=== PATIENT | female | born 1990 | race African-American/Black ===

== ENCOUNTER 2017-01-23 09:44 | Emergency (ER) | payer SELFPAY ==
[~2017-01-23] VITALS: Ht 175.3 cm; Wt 89.4 kg
[~2017-01-23 09:44] MED LIST: PNV1TABL25 PO
[2017-01-23 10:38] VITALS: BP 135/86
[2017-01-23] MEDS ORDERED: predniSONE 20 MG TABLET ONE (10:43)
[2017-01-23] MEDS ORDERED: predniSONE 20 MG TABLET PO ONE (10:45)
[2017-01-23] MEDS ORDERED: IPRATRPIUM/ALBUTEROL 0.5/2.5MG 3 ML NEBU. NEB ONE (10:45)
[2017-01-23] MEDS ORDERED: IPRATRPIUM/ALBUTEROL 0.5/2.5MG 3 ML NEBU. ONE (10:49)
--- NOTE | 2017-01-23 10:50 | PHYS DOC ---
Past Medical History Past Medical History: No Pertinent History, Endometriosis Past Surgical History: Other Additional Past Surgical Histo: something done with endometriosis Alcohol Use: Occasionally Drug Use: None Adult General Chief Complaint Chief Complaint: ASTHMA HPI HPI Patient is a 26 year old female presents to the emergency department stating that she has had 2 days history of shortness of air difficulty breathing. She states today she has had increased difficulty in which she is unable to catch her breath. Patient denies any history of. She states that approximately one week ago she had a fever but has not had a fever since that time. She denies any productive cough. She denies taking any medications to help with her breathing. Review of Systems Review of Systems Constitutional: Denies fever or chills [] Eyes: Denies change in visual acuity, redness, or eye pain [] HENT: Denies nasal congestion or sore throat [] Respiratory: Denies cough C/o shortness of breath [] Cardiovascular: No additional information not addressed in HPI [] GI: Denies abdominal pain, nausea, vomiting, bloody stools or diarrhea [] : Denies dysuria or hematuria [] Musculoskeletal: Denies back pain or joint pain [] Integument: Denies rash or skin lesions [] Neurologic: Denies headache, focal weakness or sensory changes [] Endocrine: Denies polyuria or polydipsia [] Current Medications Current Medications Current Medications Medications (Trade) Dose Ordered Sig/Jese Start Time Stop Time Status Last Admin Dose Admin Albuterol/ Ipratropium (Duoneb) 3 ml 1X ONCE 01/23/17 10:45 01/23/17 10:46 DC 01/23/17 10:50 3 ML Prednisone (Prednisone) 40 mg 1X ONCE 01/23/17 10:45 01/23/17 10:46 DC 01/23/17 10:45 40 MG Allergies Allergies Allergies Coded Allergies Type Severity Reaction Last Updated Verified No Known Drug Allergies 10/23/13 No Physical Exam Physical Exam Constitutional: Well developed, well nourished, no acute distress, non-toxic appearance. [] HENT: Normocephalic, atraumatic, bilateral external ears normal, oropharynx moist, no oral exudates, nose normal. [] Eyes: PERRLA, EOMI, conjunctiva normal, no discharge. [] Neck: Normal range of motion, no tenderness, supple, no stridor. [] Cardiovascular:Heart rate regular rhythm, no murmur [] Lungs & Thorax: Bilateral breath sounds with decrease air movement, wheezes noted to the left anterior and posterior lobes Skin: Warm, dry, no erythema, no rash. [] Back: No tenderness Extremities: No tenderness, no cyanosis, no clubbing, ROM intact, no edema. [] Neurologic: Alert and oriented X 3, normal motor function, normal sensory function, no focal deficits noted. [] Psychologic: Affect normal, judgement normal, mood normal. [] Current Patient Data Vital Signs Vital Signs Date Time Temp Pulse Resp B/P (MAP) Pulse Ox O2 Delivery O2 Flow Rate FiO2 01/23/17 10:55 100 Room Air 01/23/17 10:38 98.1 80 22 135/86 (102) 98.1 EKG EKG [] Radiology/Procedures Radiology/Procedures [] Course & Med Decision Making Course & Med Decision Making Pertinent Labs and Imaging studies reviewed. (See chart for details) Patient was provided with treatment here in the emergency department which she states is helped much better and her breathing. Patient was also provided with prednisone here in the emergency department. She'll be discharged home with a pro-air prescription in a prednisone prescription. She was instructed to use the prednisone on a daily basis for the next 7 days and recommended the albuterol inhaler as needed for shortness of air difficulty breathing. Patient was also recommended to stop smoking. Patient will be discharged home in stable condition she was provided with signs and symptoms to return back to the emergency department. All questions were answered for the patient at the bedside. Patient did ask how she was going to get her medications as she does not have insurance. Patient was instructed that she'll have to take her prescriptions to a pharmacy and have them filled and patent out of pocket for her medications. [] Dragon Disclaimer Dragon Disclaimer This electronic medical record was generated, in whole or in part, using a voice recognition dictation system. Departure Departure Impression: Primary Impression: Asthma Disposition: HOME, SELF-CARE Condition: STABLE Referrals: NO PCP (PCP) Patient Instructions: Asthma, Adult, [id number], Smoking Cessation, Tips For Success Additional Instructions: Activity as tolerated. Medications as prescribed. Stop smoking as this is can help with your lung functions. Follow-up with your primary care physician in the next 3-5 days. Return back to emergency department for signs and symptoms of become worse. Scripts Albuterol Sulfate (PROAIR HFA INHALER) 8.5 Gm Hfa.aer.ad 1 PUFF INH PRN Q6HRS Y for SHORTNESS OF BREATH, #1 INHALER 0 Refills Prov: IRA WILLARD APRN 01/23/17 Prednisone (PREDNISONE) 20 Mg Tablet 40 MG PO DAILY, #14 TAB Prov: IRA WILLARD APRN 01/23/17 IRA WILLARD APRN Jan 23, 2017 10:50
[2017-01-23] MEDS ORDERED: PROAIR HFA8.5 GM INH (11:33)
[2017-01-23] MEDS ORDERED: PRED20TA PO (11:33)
== END 2017-01-23 11:35 | disposition home or self-care (01) ==
LOC: ER 09:44
DX: J45.909 Unspecified asthma, uncomplicated (principal)
CPT/HCPCS: 94250; 94640; 99283; J7512; J7620

== ENCOUNTER 2020-02-24 20:29 | Inpatient (IN) | payer SELFPAY ==
[~2020-02-24] VITALS: Ht 175.3 cm; Wt 91.9 kg
[~2020-02-24 20:29] MED LIST changes: +ALBU2.5V8 INH; +PRED20TA PO
[2020-02-24 21:19] LABS: BILIRUBIN,URINE NEGATIVE (NEG); CLARITY,URINE CLOUDY; COLOR,URINE YELLOW; NITRITE,URINE NEGATIVE (NEG); PROTEIN,URINE NEGATIVE (NEG-TRACE)
[2020-02-24 21:21] LABS: BASO # 0.2 x10^3/uL (0.0-0.2); BASO % 1 % (0-3); EOS % 0 % (0-3); HEMATOCRIT 37.2 % (36.0-47.0); HEMOGLOBIN 12.9 g/dL (12.0-15.5); LYMPH # 2.3 x10^3/uL (1.0-4.8); LYMPH % 12 % (24-48); MEAN CORPUSCULAR HEMOGLOBIN 30 pg (25-35); MEAN CORPUSCULAR HGB CONC 35 g/dL (31-37); MEAN CORPUSCULAR VOLUME 87 fL (79-100); MONO # 0.6 x10^3/uL (0.0-1.1); MONO % 3 % (0-9); NEUT # 15.9 x10^3/uL (1.8-7.7); NEUT % 84 % (31-73); PLATELET COUNT 250 x10^3/uL (140-400); RED BLOOD COUNT 4.26 x10^6/uL (3.50-5.40); RED CELL DISTRIBUTION WIDTH 13.4 % (11.5-14.5)
[2020-02-24 21:23] LABS: BACTERIA,URINE MODERATE /HPF (0-FEW); SQUAMOUS EPITHELIAL CELL,UR MOD /LPF
[2020-02-24 21:24] LABS: RBC,URINE 0 /HPF (0-2)
[2020-02-24 21:26] LABS: CALCIUM 9.3 mg/dL (8.5-10.1); GFR 78.8
[2020-02-24] MEDS ORDERED: fentaNYL PF VIAL 100 MCG/2 ML VIAL IV ONE ×2 (21:30→23:00)
[2020-02-24] MEDS ORDERED: IV NORMAL SALINE 1000ML BAG 1,000 ML IV ONE (21:30)
[2020-02-24] MEDS ORDERED: ONDANSETRON PF 4 MG/2 ML VIAL. IV ONE (21:30)
[2020-02-24 21:32] LABS: MAGNESIUM 1.9 mg/dL (1.8-2.4); TOTAL BILIRUBIN 0.5 mg/dL (0.2-1.0)
[2020-02-24] MEDS ORDERED: CONTRAST GIVEN. MC PRN (21:45)
[2020-02-24 21:50] LABS: % BANDS 1 % (0-9); % LYMPHS 11 % (24-48); % MONOS 2 % (0-10); % SEGS 86 % (35-66); PLT ESTIMATE ADEQUATE (ADEQUATE)
[2020-02-24] MEDS ORDERED: IOHEXOL 350 MG/ML 100 ML VIAL. IV ONE (22:00)
--- NOTE | 2020-02-24 22:00 | RAD ---
Exam: CT of abdomen and pelvis with contrast INDICATION: Right lower quadrant abdominal pain TECHNIQUE: Sequential axial images through the abdomen and pelvis obtained following the administration of 75 mL of Omni 350 IV contrast. Sagittal and coronal reformatted images were reconstructed from the axial data and reviewed. Comparisons: None FINDINGS: Heart size is normal. No pericardial effusion. Visualized lung bases are clear. No pleural effusion. Liver, spleen, pancreas, gallbladder and adrenals are unremarkable. No perinephric inflammation or hydronephrosis. No renal or ureteral calculi are identified. Bladder is decompressed not well evaluated. Uterus is not enlarged. No abnormal adnexal mass. Small bowel is mildly dilated in the pelvis, with mucosal hyperenhancement. Large and small bowel are unremarkable. Appendix is normal. No free abdominal air or fluid. No obstruction. Abdominal aorta has a normal course and caliber. Abdominal vasculature is patent. No enlarged abdominal lymph nodes are identified. Bowel aorta has a normal course and caliber. No enlarged intra-abdominal lymph nodes are identified. No suspicious osseous lesions or acute fractures. IMPRESSION: 1. Findings which may relate to enteritis and small bowel seen in the pelvis. May be infectious or inflammatory in etiology. 2. Normal appendix. Exposure: One or more of the following in the visualized dose reduction techniques were utilized for this examination: 1. Automated exposure control 2. Adjustment of the MA and/or KV according to patient size 3. Use of iterative of reconstructive technique Electronically signed by: Daron Shi MD (02/24/2020 9:57 PM) [id number]
[2020-02-24] MEDS ORDERED: ACETAMINOPHEN 500 MG TABLET PO ONE (23:00)
--- NOTE | 2020-02-24 23:17 | PHYS DOC ---
Past Medical History Past Medical History: Endometriosis (DALILA ARITA APRN) Past Surgical History: Other Additional Past Surgical Histo: something done with endometriosis, D&C (DALILA ARITA APRN) Smoking Status: Current Every Day Smoker Alcohol Use: Occasionally Drug Use: None (DALILA ARITA APRN) General Adult EDM: Chief Complaint: ABDOMINAL PAIN HPI: HPI: Patient is a 29 year old AA female who presents to the emergency department with complaints of right lower quadrant abdominal pain that began this morning. She reports nausea and a fever with the discomfort. She denies any vomiting or diarrhea. Patient reports that she has been constipated and has not had a bowel movement for the last 2 days. She denies any cough, shortness of breath, chest pain, sore throat, or body aches. Patient reports that the pain is worse with palpation and movement of her right leg. She currently rates the pain a 10 out of 10 on the pain scale, she describes the pain as sharp in nature. She denies any radiation. She denies any alleviating factors. (DALILA ARITA DRESSAGE INSTRUCTOR) Review of Systems: Review of Systems: Constitutional: Reports fever Eyes: Denies change in visual acuity. [] HENT: Denies nasal congestion or sore throat. [] Respiratory: Denies cough or shortness of breath. [] Cardiovascular: Denies chest pain or edema. [] GI: See HPI : Denies dysuria, hematuria, or increased urinary frequency. [] Musculoskeletal: Denies back pain or joint pain. [] Integument: Denies rash. [] Neurologic: Denies headache Psychiatric: Denies depression or anxiety. [] (DALILA ARITA DRESSAGE INSTRUCTOR) Heart Score: Risk Factors: Risk Factors: DM, Current or recent (<one month) smoker, HTN, HLP, family history of CAD, obesity. Risk Scores: Score 0 - 3: 2.5% MACE over next 6 weeks - Discharge Home Score 4 - 6: 20.3% MACE over next 6 weeks - Admit for Clinical Observation Score 7 - 10: 72.7% MACE over next 6 weeks - Early Invasive Strategies (DALILA ARITA APRN) Current Medications: Current Medications Medications (Trade) Dose Ordered Sig/Jese Start Time Stop Time Status Last Admin Dose Admin Acetaminophen (Tylenol) 1,000 mg 1X ONCE 02/24/20 23:00 02/24/20 23:01 DC 02/24/20 22:34 1,000 MG Fentanyl Citrate (Fentanyl 2ml Vial) 50 mcg 1X ONCE 02/24/20 23:00 02/24/20 23:01 DC 02/24/20 22:34 50 MCG Info (CONTRAST GIVEN -- Rx MONITORING) 1 each PRN DAILY PRN 02/24/20 21:45 02/26/20 21:44 Iohexol (Omnipaque 350 Mg/ml) 75 ml 1X ONCE 02/24/20 22:00 02/24/20 22:01 DC 02/24/20 21:41 75 ML Ondansetron HCl (Zofran) 4 mg 1X ONCE 02/24/20 21:30 02/24/20 21:31 DC 02/24/20 21:18 4 MG Sodium Chloride 1,000 ml @ 1,000 mls/hr 1X ONCE 02/24/20 21:30 02/24/20 22:29 DC 02/24/20 21:19 1,000 MLS/HR (DALILA ARITA APRN) Allergies: Allergies: Allergies Coded Allergies Type Severity Reaction Last Updated Verified No Known Drug Allergies 10/23/13 No (DALILA ARITA APRN) Physical Exam: PE: Constitutional: Well developed, well nourished, mild distress, appears uncomfortable HENT: Normocephalic, atraumatic, bilateral external ears normal, oropharynx moist, , nose normal. [] Eyes: PERRLA, EOMI, conjunctiva normal, no discharge. [] Neck: Normal range of motion, no stridor. [] Cardiovascular:Heart rate regular tachycardic rhythm, no murmur [] Lungs & Thorax: Bilateral breath sounds clear to auscultation, my lungs [] Abdomen: Bowel sounds normal, soft, right lower quadrant tenderness to palpation, negative Rovsing sign, + obturator sign, no palpable mass Skin: Warm, dry, no erythema, no rash. [] Back: No CVA tenderness. [] Extremities: No cyanosis, no clubbing, ROM intact, no edema. [] Neurologic: Alert and oriented X 3, no focal deficits noted. [] Psychologic: Affect normal, judgement normal, mood normal. [] (DALILA ARITA APRN) Current Patient Data: Labs: Laboratory Tests Test 02/24/20 20:30 02/24/20 21:11 02/24/20 21:17 Urine Collection Type Unknown Urine Color Yellow Urine Clarity Cloudy Urine pH 6.0 (<5.0-8.0) Urine Specific Addy 1.010 (1.000-1.030) Urine Protein Negative mg/dL (NEG-TRACE) Urine Glucose (UA) Negative mg/dL (NEG) Urine Ketones (Stick) Negative mg/dL (NEG) Urine Blood Negative (NEG) Urine Nitrite Negative (NEG) Urine Bilirubin Negative (NEG) Urine Urobilinogen Dipstick 1.0 mg/dL (0.2 mg/dL) Urine Leukocyte Esterase Moderate (NEG) Urine RBC 0 /HPF (0-2) Urine WBC 11-20 /HPF (0-4) Urine Squamous Epithelial Cells Mod /LPF Urine Bacteria Moderate /HPF (0-FEW) Urine Mucus Mod /LPF White Blood Count 19.0 x10^3/uL (4.0-11.0) H Red Blood Count 4.26 x10^6/uL (3.50-5.40) Hemoglobin 12.9 g/dL (12.0-15.5) Hematocrit 37.2 % (36.0-47.0) Mean Corpuscular Volume 87 fL (79-100) Mean Corpuscular Hemoglobin 30 pg (25-35) Mean Corpuscular Hemoglobin Concent 35 g/dL (31-37) Red Cell Distribution Width 13.4 % (11.5-14.5) Platelet Count 250 x10^3/uL (140-400) Neutrophils (%) (Auto) 84 % (31-73) H Lymphocytes (%) (Auto) 12 % (24-48) L Monocytes (%) (Auto) 3 % (0-9) Eosinophils (%) (Auto) 0 % (0-3) Basophils (%) (Auto) 1 % (0-3) Neutrophils # (Auto) 15.9 x10^3/uL (1.8-7.7) H Lymphocytes # (Auto) 2.3 x10^3/uL (1.0-4.8) Monocytes # (Auto) 0.6 x10^3/uL (0.0-1.1) Eosinophils # (Auto) 0.0 x10^3/uL (0.0-0.7) Basophils # (Auto) 0.2 x10^3/uL (0.0-0.2) Segmented Neutrophils % 86 % (35-66) H Band Neutrophils % 1 % (0-9) Lymphocytes % 11 % (24-48) L Monocytes % 2 % (0-10) Platelet Estimate Adequate (ADEQUATE) Sodium Level 139 mmol/L (136-145) Potassium Level 4.0 mmol/L (3.5-5.1) Chloride Level 103 mmol/L (98-107) Carbon Dioxide Level 25 mmol/L (21-32) Anion Gap 11 (6-14) Blood Urea Nitrogen 7 mg/dL (7-20) Creatinine 1.0 mg/dL (0.6-1.0) Estimated GFR (Cockcroft-Gault) 78.8 BUN/Creatinine Ratio 7 (6-20) Glucose Level 123 mg/dL (70-99) H Calcium Level 9.3 mg/dL (8.5-10.1) Magnesium Level 1.9 mg/dL (1.8-2.4) Total Bilirubin 0.5 mg/dL (0.2-1.0) Aspartate Amino Transferase (AST) 14 U/L (15-37) L Alanine Aminotransferase (ALT) 30 U/L (14-59) Alkaline Phosphatase 103 U/L (46-116) Total Protein 8.0 g/dL (6.4-8.2) Albumin 4.0 g/dL (3.4-5.0) Albumin/Globulin Ratio 1.0 (1.0-1.7) Lipase 78 U/L (73-393) POC Urine HCG, Qualitative Hcg negative (Negative) Laboratory Tests 02/24/20 21:11 Laboratory Tests 02/24/20 21:11 Vital Signs: Vital Signs Date Time Temp Pulse Resp B/P (MAP) Pulse Ox O2 Delivery O2 Flow Rate FiO2 02/24/20 22:34 32 100 Room Air 02/24/20 21:00 100.9 111 140/86 (104) 100.9 (DALILA ARITA APRN) EKG: EKG: [] (DALILA ARITA APRN) Radiology/Procedures: Radiology/Procedures: PROCEDURE: CT ABD PELV W/ IV CONTRST ONLY Exam: CT of abdomen and pelvis with contrast INDICATION: Right lower quadrant abdominal pain TECHNIQUE: Sequential axial images through the abdomen and pelvis obtained following the administration of 75 mL of Omni 350 IV contrast. Sagittal and coronal reformatted images were reconstructed from the axial data and reviewed. Comparisons: None FINDINGS: Heart size is normal. No pericardial effusion. Visualized lung bases are clear. No pleural effusion. Liver, spleen, pancreas, gallbladder and adrenals are unremarkable. No perinephric inflammation or hydronephrosis. No renal or ureteral calculi are identified. Bladder is decompressed not well evaluated. Uterus is not enlarged. No abnormal adnexal mass. Small bowel is mildly dilated in the pelvis, with mucosal hyperenhancement. Large and small bowel are unremarkable. Appendix is normal. No free abdominal air or fluid. No obstruction. Abdominal aorta has a normal course and caliber. Abdominal vasculature is patent. No enlarged abdominal lymph nodes are identified. Bowel aorta has a normal course and caliber. No enlarged intra-abdominal lymph nodes are identified. No suspicious osseous lesions or acute fractures. IMPRESSION: 1. Findings which may relate to enteritis and small bowel seen in the pelvis. May be infectious or inflammatory in etiology. 2. Normal appendix. Exposure: One or more of the following in the visualized dose reduction techniques were utilized for this examination: 1. Automated exposure control 2. Adjustment of the MA and/or KV according to patient size 3. Use of iterative of reconstructive technique [] (DALILA ARITA APRN) Course & Med Decision Making: Course & Med Decision Making Pertinent Labs and Imaging studies reviewed. (See chart for details) 29-year-old female presents emergency department with complaints of fever and right lower quadrant abdominal pain. CBC revealed a white count of 19.0 otherwise unremarkable; CMP revealed a glucose of 123 otherwise unremarkable, normal lipase; UA revealed 11-20 white blood cells with moderate squames and moderate bacteria negative hCG. CT abdomen pelvis revealed a normal-appearing appendix and gallbladder findings which may relate to enteritis and small bowel seen in the pelvis. May be infectious or inflammatory in etiology. An ultrasound of the patient's pelvis was ordered. 1115-report was given to Dr. Escudero who will follow-up on the ultrasound results and make the final disposition on the patient. The patient was given a gram of Tylenol, 2 doses of fentanyl 50 mics each, 4 mg of Zofran, and a liter of normal saline by myself. She reported feeling better after these medications. (DALILA ARITA APRN) Basilioon Disclaimer: Lisette Disclaimer: This electronic medical record was generated, in whole or in part, using a voice recognition dictation system. (DALILA ARITA APRN) Departure Departure Referrals: NO PCP (PCP) Justicifation of Admission Dx: Justifications for Admission: Justification of Admission Dx: N/A (DALILA ARITA APRN) Attending Signature Attending Signature I have reviewed the non-physician practitioner's documentation, personally taken the patient's history, performed an exam and agree with the physical findings, clinical impression, and management plan. In brief patient is a 29-year-old female who presents with a chief complaint of right lower quadrant abdominal pain. CT imaging reveals no obvious appendicitis however there is findings consistent with enteritis. Given her continued right lower quadrant pain ultrasound was obtained to rule out torsion versus abscess versus hemorrhagic cyst. Ultrasound grossly unremarkable. CBC does show significant leukocytosis at 19,000. Urinalysis does show evidence of infection. Repeat examination patient is still quite uncomfortable on right lower quadrant and right flank palpation. She remains tachycardic with a heart rate of 120. This could represent acute pyelonephritis. Given her continued discomfort, abnormal labs, potential source of infection, and elevated heart rate I do feel she would benefit from hospitalization. Blood cultures obtained and pending. She will be given 30 cc/kg fluid bolus. Rocephin administered. She will be hospitalized for further monitoring. (MATTHEW ESCUDERO DO) DALILA ARITA APRN Feb 24, 2020 23:17 MATTHEW ESCUDERO DO Feb 25, 2020 00:35
--- NOTE | 2020-02-24 23:36 | RAD ---
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 Comparisons: None FINDINGS: Uterus measures 8.9 x 5.3 x 3.8 cm. Endometrium measures 5 mm in thickness. Right ovary measures 3.2 x 1.4 x 1.4 cm. Left ovary measures 4.3 x 2.8 x 2.3 cm. Vascular flow identified within the ovaries bilaterally. No free fluid identified in the pelvis. IMPRESSION: Normal sonographic appearance of the uterus and ovaries. Focus change in the ovaries, with dominant follicle on the left measuring 1.1 cm. Electronically signed by: Daron Shi MD (02/24/2020 11:33 PM) [id number]
--- NOTE | 2020-02-25 00:37 | PHYS DOC ---
Past Medical History Past Medical History: Endometriosis Past Surgical History: Other Additional Past Surgical Histo: something done with endometriosis, D&C Smoking Status: Current Every Day Smoker Alcohol Use: Occasionally Drug Use: None General Adult EDM: Chief Complaint: ABDOMINAL PAIN HPI: HPI: Patient is a 29 year old [f__sex] who presents with [] Review of Systems: Review of Systems: Constitutional: Denies fever or chills. [] Eyes: Denies change in visual acuity. [] HENT: Denies nasal congestion or sore throat. [] Respiratory: Denies cough or shortness of breath. [] Cardiovascular: Denies chest pain or edema. [] GI: Denies abdominal pain, nausea, vomiting, bloody stools or diarrhea. [] : Denies dysuria. [] Musculoskeletal: Denies back pain or joint pain. [] Integument: Denies rash. [] Neurologic: Denies headache, focal weakness or sensory changes. [] Endocrine: Denies polyuria or polydipsia. [] Lymphatic: Denies swollen glands. [] Psychiatric: Denies depression or anxiety. [] Heart Score: Risk Factors: Risk Factors: DM, Current or recent (<one month) smoker, HTN, HLP, family history of CAD, obesity. Risk Scores: Score 0 - 3: 2.5% MACE over next 6 weeks - Discharge Home Score 4 - 6: 20.3% MACE over next 6 weeks - Admit for Clinical Observation Score 7 - 10: 72.7% MACE over next 6 weeks - Early Invasive Strategies Current Medications: Current Medications Medications (Trade) Dose Ordered Sig/Jese Start Time Stop Time Status Last Admin Dose Admin Acetaminophen (Tylenol) 1,000 mg 1X ONCE 02/24/20 23:00 02/24/20 23:01 DC 02/24/20 22:34 1,000 MG Acetaminophen/ Hydrocodone Bitart (Lortab 10/325) 1 tab 1X ONCE 02/25/20 01:00 02/25/20 01:01 Ceftriaxone Sodium (Rocephin) 1 gm 1X ONCE 02/25/20 01:00 02/25/20 01:01 Cephalexin HCl (Keflex) 1,000 mg 1X ONCE 02/25/20 01:00 02/25/20 01:01 Cancel Fentanyl Citrate (Fentanyl 2ml Vial) 50 mcg 1X ONCE 02/24/20 23:00 02/24/20 23:01 DC 02/24/20 22:34 50 MCG Info (CONTRAST GIVEN -- Rx MONITORING) 1 each PRN DAILY PRN 02/24/20 21:45 02/26/20 21:44 Iohexol (Omnipaque 350 Mg/ml) 75 ml 1X ONCE 02/24/20 22:00 02/24/20 22:01 DC 02/24/20 21:41 75 ML Morphine Sulfate (Morphine Sulfate) 4 mg PRN Q2HR PRN 02/25/20 00:45 02/26/20 00:44 UNV Ondansetron HCl (Zofran) 4 mg PRN Q8HRS PRN 02/25/20 00:45 02/26/20 00:44 UNV Sodium Chloride 1,000 ml @ 2,000 mls/hr 1X ONCE 02/25/20 01:00 02/25/20 01:29 Allergies: Allergies: Allergies Coded Allergies Type Severity Reaction Last Updated Verified No Known Drug Allergies 10/23/13 No Physical Exam: PE: Constitutional: Well developed, well nourished, no acute distress, non-toxic appearance. [] HENT: Normocephalic, atraumatic, bilateral external ears normal, oropharynx moist, no oral exudates, nose normal. [] Eyes: PERRLA, EOMI, conjunctiva normal, no discharge. [] Neck: Normal range of motion, no tenderness, supple, no stridor. [] Cardiovascular:Heart rate regular rhythm, no murmur [] Lungs & Thorax: Bilateral breath sounds clear to auscultation [] Abdomen: Bowel sounds normal, soft, no tenderness, no masses, no pulsatile masses. [] Skin: Warm, dry, no erythema, no rash. [] Back: No tenderness, no CVA tenderness. [] Extremities: No tenderness, no cyanosis, no clubbing, ROM intact, no edema. [] Neurologic: Alert and oriented X 3, normal motor function, normal sensory function, no focal deficits noted. [] Psychologic: Affect normal, judgement normal, mood normal. [] Current Patient Data: Labs: Laboratory Tests Test 02/24/20 20:30 02/24/20 21:11 02/24/20 21:17 Urine Collection Type Unknown Urine Color Yellow Urine Clarity Cloudy Urine pH 6.0 (<5.0-8.0) Urine Specific [place] 1.010 (1.000-1.030) Urine Protein Negative mg/dL (NEG-TRACE) Urine Glucose (UA) Negative mg/dL (NEG) Urine Ketones (Stick) Negative mg/dL (NEG) Urine Blood Negative (NEG) Urine Nitrite Negative (NEG) Urine Bilirubin Negative (NEG) Urine Urobilinogen Dipstick 1.0 mg/dL (0.2 mg/dL) Urine Leukocyte Esterase Moderate (NEG) Urine RBC 0 /HPF (0-2) Urine WBC 11-20 /HPF (0-4) Urine Squamous Epithelial Cells Mod /LPF Urine Bacteria Moderate /HPF (0-FEW) Urine Mucus Mod /LPF White Blood Count 19.0 x10^3/uL (4.0-11.0) H Red Blood Count 4.26 x10^6/uL (3.50-5.40) Hemoglobin 12.9 g/dL (12.0-15.5) Hematocrit 37.2 % (36.0-47.0) Mean Corpuscular Volume 87 fL (79-100) Mean Corpuscular Hemoglobin 30 pg (25-35) Mean Corpuscular Hemoglobin Concent 35 g/dL (31-37) Red Cell Distribution Width 13.4 % (11.5-14.5) Platelet Count 250 x10^3/uL (140-400) Neutrophils (%) (Auto) 84 % (31-73) H Lymphocytes (%) (Auto) 12 % (24-48) L Monocytes (%) (Auto) 3 % (0-9) Eosinophils (%) (Auto) 0 % (0-3) Basophils (%) (Auto) 1 % (0-3) Neutrophils # (Auto) 15.9 x10^3/uL (1.8-7.7) H Lymphocytes # (Auto) 2.3 x10^3/uL (1.0-4.8) Monocytes # (Auto) 0.6 x10^3/uL (0.0-1.1) Eosinophils # (Auto) 0.0 x10^3/uL (0.0-0.7) Basophils # (Auto) 0.2 x10^3/uL (0.0-0.2) Segmented Neutrophils % 86 % (35-66) H Band Neutrophils % 1 % (0-9) Lymphocytes % 11 % (24-48) L Monocytes % 2 % (0-10) Platelet Estimate Adequate (ADEQUATE) Sodium Level 139 mmol/L (136-145) Potassium Level 4.0 mmol/L (3.5-5.1) Chloride Level 103 mmol/L (98-107) Carbon Dioxide Level 25 mmol/L (21-32) Anion Gap 11 (6-14) Blood Urea Nitrogen 7 mg/dL (7-20) Creatinine 1.0 mg/dL (0.6-1.0) Estimated GFR (Cockcroft-Gault) 78.8 BUN/Creatinine Ratio 7 (6-20) Glucose Level 123 mg/dL (70-99) H Calcium Level 9.3 mg/dL (8.5-10.1) Magnesium Level 1.9 mg/dL (1.8-2.4) Total Bilirubin 0.5 mg/dL (0.2-1.0) Aspartate Amino Transferase (AST) 14 U/L (15-37) L Alanine Aminotransferase (ALT) 30 U/L (14-59) Alkaline Phosphatase 103 U/L (46-116) Total Protein 8.0 g/dL (6.4-8.2) Albumin 4.0 g/dL (3.4-5.0) Albumin/Globulin Ratio 1.0 (1.0-1.7) Lipase 78 U/L (73-393) POC Urine HCG, Qualitative Hcg negative (Negative) Laboratory Tests 02/24/20 21:11 Laboratory Tests 02/24/20 21:11 Vital Signs: Vital Signs Date Time Temp Pulse Resp B/P (MAP) Pulse Ox O2 Delivery O2 Flow Rate FiO2 02/24/20 22:34 32 100 Room Air 02/24/20 21:00 100.9 111 140/86 (104) 100.9 EKG: EKG: EKG consistent with sinus tachycardia. Ventricular rate of 117 bpm. Intervals normal. [place] normal. No acute ischemic changes noted. [] Radiology/Procedures: Radiology/Procedures: [] Course & Med Decision Making: Course & Med Decision Making Pertinent Labs and Imaging studies reviewed. (See chart for details) [] Admit for acute pyelonephritis. Lisette Disclaimer: Lisette Disclaimer: This electronic medical record was generated, in whole or in part, using a voice recognition dictation system. Departure Departure Impression: Primary Impression: Pyelonephritis Additional Impression: Sepsis Qualified Codes: A41.9 - Sepsis, unspecified organism Disposition: ADMITTED INPATIENT Condition: STABLE Referrals: NO PCP (PCP) Justicifation of Admission Dx: Justifications for Admission: Justification of Admission Dx: Yes Comments: acute pyelonephritis MATTHEW ROY DO Feb 25, 2020 00:37
[2020-02-25] MEDS ORDERED: ONDANSETRON PF 4 MG/2 ML VIAL. IV PRN (00:45)
[2020-02-25] MEDS ORDERED: HYDROcodone/APAP 10/325 1 TAB TABLET PO ONE (01:00)
[2020-02-25] MEDS ORDERED: CEPHALEXIN 250 MG CAPSULE. PO ONE (01:00)
[2020-02-25] MEDS ORDERED: IV NORMAL SALINE 1000ML BAG 1,000 ML IV ONE (01:00)
[2020-02-25] MEDS ORDERED: cefTRIAXone IV Push 1 GM VIAL. IVP ONE (01:00)
[2020-02-25] MEDS ORDERED: KETOROLAC 15 MG/ML VIAL. IVP ONE (01:30)
[2020-02-25 03:20] VITALS: BP 113/69
--- NOTE | 2020-02-25 03:20 | NUR ---
Pt. arrived on unit at 0320 by bed from ER. Patient rates her pain 7/10. Pain medication was given and assessment was done at this time. Call light is within reach with bed in lowest position. Will continue to monitor.
[2020-02-25] MEDS: MORPHINE SULFATE 4 MG/ML VIAL. IV PRN ×3 (03:36→16:29)
[2020-02-25] MEDS ORDERED: CETI10TA74 PO (05:45)
[2020-02-25] MEDS ORDERED: POLYETHYLENE GLYCOL 3350 17 GM PACKET. PO PRN (06:00)
[2020-02-25] MEDS ORDERED: ACETAMINOPHEN 325 MG TABLET. PO PRN (06:00)
[2020-02-25 07:05] VITALS: BP 111/69
--- NOTE | 2020-02-25 07:16 | EKG ---
[facility] [address] [place] [address] Test Date: 2020-02-25 Test Time: 00:42:48 Pat Name: CHRISTOPHER UREÑA Department: Room: Gender: F Lead Person: : 1990 Requested By: MATTHEW ROY Order Number: [id number] Reading MD: Measurements Intervals [place] Rate: 117 P: 52 WV: 204 QRS: 60 QRSD: 74 T: 36 QT: 290 QTc: 408 Interpretive Statements SINUS TACHYCARDIA PROLONGED [place] INTERVAL ABNORMAL ECG RI6.02 No previous ECG available for comparison
--- NOTE | 2020-02-25 09:51 | NUR ---
SW following. Discussed with RN, pt from home, room air, regular diet, ad desean. Gynecology consulted. RN advised no SW needs at this time, possible discharge pending gynecology determination. SW will continue to follow. Med Assist following for self pay status.
[2020-02-25] MEDS ORDERED: SENNOSIDES 8.6 MG TABLET PO PRN ×2 (10:00→11:45)
--- NOTE | 2020-02-25 10:01 | CONS ---
DATE OF CONSULTATION: HISTORY OF PRESENT ILLNESS: This lady is a 29-year-old -[place] female who is 2, para 2, admitted to the hospital with a history of pelvic pain and abdominal pain and she has been getting treatment for pyelonephritis with antibiotics. PHYSICAL EXAMINATION: She says she has had 2 normal deliveries and last menstrual period was 1 week ago. Abdomen feels soft. There is tenderness in the midline. She does have a history of endometriosis. Pelvic exam shows external genitalia being normal. Cervical os is closed. On bimanual exam, no adnexal masses are palpable at this time. She does have small amount of tenderness in the right lower quadrant, but for that no other abnormal findings. IMPRESSION: Pelvic pain, history of endometriosis, pyelonephritis. RECOMMENDATIONS: Since her ultrasonogram as well as CT scan is normal at this time, would continue IV antibiotics and pain pills for a duration of 1 week or 10 days and would not recommend any TIME BROKER surgery at this time, it would be mostly conservative treatment. Thank you for giving me the opportunity to participate in the care and management of this patient. ALXEX MUSA MD DR: SHANIKA/jeet JOB#: [id number] / [id number]
[2020-02-25] MEDS: HYDROcodone/APAP 10/325 1 TAB TABLET PO PRN ×2 (10:03→20:01)
[2020-02-25] MEDS: POLYETHYLENE GLYCOL 3350 17 GM PACKET. PO PRN (10:03)
[2020-02-25 11:05] VITALS: BP 123/77
--- NOTE | 2020-02-25 11:43 | PDOC1 ---
History and Physical Date of Service: DOS: DATE: 02/25/20 TIME: 11:37 Chief Complaint: Chief Complain: Lower abdominal pains History of Present Illness: HPI: Patient is a 29-year-old -Finnish female with past medical history of endometriosis who presents with right lower quadrant abdominal pain that began yesterday morning. She does endorse some nausea and fever. She denies any hematemesis or diarrhea or shortness of breath or fevers. Right lower quadrant pain is sharp and 10 out of 10 and associated with some anorexia. There is no radiation. She denies any exacerbating or alleviating factors. Patient states that she also has not had a bowel movement in the past 3 days. Of note, she states that she has had a DNC and a laparoscopic procedure done for her endometriosis however she is unable to elaborate on these procedures. Past Medical/Surgical History: PMH/PSH: History of endometriosis History of DNC and diagnostic laparoscopy Allergies: Allergies: Coded Allergies: No Known Drug Allergies (Unverified , 10/23/13) Family History: Family History: Reviewed and none reported Social History: Social History: Smoking Status: Current Every Day Smoker Alcohol Use: Occasionally Drug Use: None Current Medications: Current Medications Current Medications Fentanyl Citrate (Fentanyl 2ml Vial) 50 mcg 1X ONCE IV Last administered on 02/24/20at 21:18; Start 02/24/20 at 21:30; Stop 02/24/20 at 21:31; Status DC Sodium Chloride 1,000 ml @ 1,000 mls/hr 1X ONCE IV Last administered on 02/24/20at 21:19; Start 02/24/20 at 21:30; Stop 02/24/20 at 22:29; Status DC Ondansetron HCl (Zofran) 4 mg 1X ONCE IV Last administered on 02/24/20at 21:18; Start 02/24/20 at 21:30; Stop 02/24/20 at 21:31; Status DC Iohexol (Omnipaque 350 Mg/ml) 75 ml 1X ONCE IV Last administered on 02/24/20at 21:41; Start 02/24/20 at 22:00; Stop 02/24/20 at 22:01; Status DC Info (CONTRAST GIVEN -- Rx MONITORING) 1 each PRN DAILY PRN MC SEE COMMENTS; Carl tart 02/24/20 at 21:45; Stop 02/26/20 at 21:44 Fentanyl Citrate (Fentanyl 2ml Vial) 50 mcg 1X ONCE IV Last administered on 02/24/20at 22:34; Start 02/24/20 at 23:00; Stop 02/24/20 at 23:01; Status DC Acetaminophen (Tylenol) 1,000 mg 1X ONCE PO Last administered on 02/24/20at 22:34; Start 02/24/20 at 23:00; Stop 02/24/20 at 23:01; Status DC Cephalexin HCl (Keflex) 1,000 mg 1X ONCE PO ; Start 02/25/20 at 01:00; Stop 02/25/20 at 01:01; Status Cancel Ceftriaxone Sodium (Rocephin) 1 gm 1X ONCE IVP Last administered on 02/25/20at 01:21; Start 02/25/20 at 01:00; Stop 02/25/20 at 01:01; Status DC Acetaminophen/ Hydrocodone Bitart (Lortab 10/325) 1 tab 1X ONCE PO Last administered on 02/25/20at 01:01; Start 02/25/20 at 01:00; Stop 02/25/20 at 01:01; Status DC Sodium Chloride 1,000 ml @ 2,000 mls/hr 1X ONCE IV Last administered on 02/25/20at 01:00; Start 02/25/20 at 01:00; Stop 02/25/20 at 01:29; Status DC Ondansetron HCl (Zofran) 4 mg PRN Q8HRS PRN IV NAUSEA/VOMITING 1ST CHOICE; Start 02/25/20 at 00:45; Stop 02/26/20 at 00:44 Morphine Sulfate (Morphine Sulfate) 4 mg PRN Q2HR PRN IV SEVERE PAIN 7-10 Last administered on 02/25/20at 08:17; Start 02/25/20 at 00:45; Stop 02/26/20 at 00:44 Ketorolac Tromethamine (Toradol 15mg Vial) 15 mg 1X ONCE IVP Last administered on 02/25/20at 01:21; Start 02/25/20 at 01:30; Stop 02/25/20 at 01:31; Status DC Acetaminophen (Tylenol) 650 mg PRN Q6HRS PRN PO fever; Start 02/25/20 at 06:00 Polyethylene Glycol (miraLAX PACKET) 17 gm PRN DAILY PRN PO CONSTIPATION 1ST CHOICE; Start 02/25/20 at 06:00; Stop 02/25/20 at 11:02; Status DC Acetaminophen/ Hydrocodone Bitart (Lortab 10/325) 1 tab PRN Q6HRS PRN PO PAIN Last administered on 02/25/20at 10:03; Start 02/25/20 at 10:00 Sennosides (Senna) 8.6 mg PRN BID PRN PO CONSTIPATION Last administered on 02/25/20at 10:02; Start 02/25/20 at 10:00 Piperacillin Sod/ Tazobactam Sod 3.375 gm/Sodium Chloride 50 ml @ 100 mls/hr Q6HRS IV ; Start 02/25/20 at 12:00 Polyethylene Glycol (miraLAX PACKET) 17 gm PRN Q6HRS PRN PO CONSTIPATION; Start 02/25/20 at 11:00 Sennosides (Senna) 17.2 mg PRN BID PRN PO CONSTIPATION; Start 02/25/20 at 11:45; Status UNV Docusate Sodium (Colace) 100 mg PRN DAILY PRN PO HARD STOOLS; Start 02/25/20 at 11:45; Status UNV Ondansetron HCl (Zofran) 4 mg PRN Q6HRS PRN IVP NAUSEA/VOMITING; Start 02/25/20 at 11:45; Status UNV Potassium Chloride (Klor-Con) 40 meq 1X PRN PO PER PROTOCOL; Start 02/25/20 at 11:45; Status UNV Magnesium Oxide (Magnesium Oxide) 400 mg BID PO ; Start 02/25/20 at 21:00; Stop 02/27/20 at 09:01; Status UNV Potassium Chloride/Water 100 ml @ 100 mls/hr Q1H IV ; Start 02/25/20 at 11:45; Stop 02/25/20 at 15:44; Status UNV Magnesium Sulfate 50 ml @ 25 mls/hr Q24H IV ; Start 02/25/20 at 11:45; Stop 02/27/20 at 13:44; Status UNV Potassium Chloride/Water 100 ml @ 100 mls/hr Q1H PRN IV low k; Start 02/25/20 at 11:45; Status UNV Dextrose (Dextrose 50%-Water Syringe) 12.5 gm PRN Q15MIN PRN IV SEE COMMENTS; Start 02/25/20 at 11:45; Status UNV Sodium Chloride 1,000 ml @ 100 mls/hr Q10H IV ; Start 02/25/20 at 11:31; Status UNV Acetaminophen (Tylenol) 650 mg PRN Q4HRS PRN PO TEMP OVER 100.4F OR MILD PAIN; Start 02/25/20 at 11:45; Status UNV Enoxaparin Sodium (Lovenox 40mg Syringe) 40 mg Q24H SQ ; Start 02/25/20 at 11:45; Status UNV Active Scripts Active Reported Zyrtec (Cetirizine Hcl) 10 Mg Tablet 1 Tab PO DAILY ROS: Review of Systems Review of System REVIEW OF SYSTEMS: GENERAL: Denies weakness SKIN: No bruising, hair changes or rashes. EYES: No blurred, double or loss of vision. NOSE AND THROAT: No history of nosebleeds, hoarseness or sore throat. HEART: No history of palpitations, chest pain or shortness of breath on exertion. LUNGS: Denies cough, hemoptysis, wheezing or shortness of breath. GASTROINTESTINAL: Denies changes in appetite, nausea, vomiting, diarrhea or constipation. GENITOURINARY: No history of frequency, urgency, hesitancy or nocturia. NEUROLOGIC: Denies history of numbness, tingling, or tremor. PSYCHIATRIC: No history of panic, anxiety or depression. ENDOCRINE: No history of heat or cold intolerance, polyuria or polydipsia. EXTREMITIES: Denies joint pain, pain on walking or stiffness. Physical Exam: Vital Signs: Vital Signs Date Time Temp Pulse Resp B/P (MAP) Pulse Ox O2 Delivery O2 Flow Rate FiO2 02/25/20 11:05 98.9 99 19 123/77 (92) 100 Room Air 98.9 Physcial Exam: GEN: No apparent distress. Alert and oriented HEENT: Normal cephalic, atraumatic, external auditory canals are patent EYES: Extraocular muscles are intact, pupil are equally round and reactive to light and accommodation MUSCULOSKELETAL: Well developed , well nourished, good range of motion ENDOCRINE: No thyromegaly was palpated LYMPHATICS: No cervical chain or axillary nodes were noted HEMATOPOIETIC: No bruising NECK: Supple, no JVD, no thyromegaly was noted LUNGS: Clear to auscultation in all lung may without rhonchi or wheezing HEART: RRR, S!, S2 present. Peripheral pulses intact, no obvious murmurs noted ABDOMEN: Soft, nontender. Positive bowel sounds, no organomegaly, normal bowel sounds EXTREMITIES: Without clubbing, cyanosis, or edema. Pedal pulses intact. Negative Homans sign NEUROLOGIC: Normal speech and tone. A&O x 3, moves all extremities, no obvious focal deficits PSYCHIATRIC: Normal affect, normal mood. Stable SKIN: No ulcerations or rashes, good skin turgor, no jaundice VASCULAR: Good capillary refill, neurovascular bundle appears to be intact Labs: Labs: Laboratory Tests Test 02/24/20 20:30 02/24/20 21:11 02/24/20 21:17 02/25/20 01:15 Urine Collection Type Unknown Urine Color Yellow Urine Clarity Cloudy Urine pH 6.0 (<5.0-8.0) Urine Specific [place] 1.010 (1.000-1.030) Urine Protein Negative mg/dL (NEG-TRACE) Urine Glucose (UA) Negative mg/dL (NEG) Urine Ketones (Stick) Negative mg/dL (NEG) Urine Blood Negative (NEG) Urine Nitrite Negative (NEG) Urine Bilirubin Negative (NEG) Urine Urobilinogen Dipstick 1.0 mg/dL (0.2 mg/dL) Urine Leukocyte Esterase Moderate (NEG) Urine RBC 0 /HPF (0-2) Urine WBC 11-20 /HPF (0-4) Urine Squamous Epithelial Cells Mod /LPF Urine Bacteria Moderate /HPF (0-FEW) Urine Mucus Mod /LPF White Blood Count 19.0 x10^3/uL (4.0-11.0) Red Blood Count 4.26 x10^6/uL (3.50-5.40) Hemoglobin 12.9 g/dL (12.0-15.5) Hematocrit 37.2 % (36.0-47.0) Mean Corpuscular Volume 87 fL (79-100) Mean Corpuscular Hemoglobin 30 pg (25-35) Mean Corpuscular Hemoglobin Concent 35 g/dL (31-37) Red Cell Distribution Width 13.4 % (11.5-14.5) Platelet Count 250 x10^3/uL (140-400) Neutrophils (%) (Auto) 84 % (31-73) Lymphocytes (%) (Auto) 12 % (24-48) Monocytes (%) (Auto) 3 % (0-9) Eosinophils (%) (Auto) 0 % (0-3) Basophils (%) (Auto) 1 % (0-3) Neutrophils # (Auto) 15.9 x10^3/uL (1.8-7.7) Lymphocytes # (Auto) 2.3 x10^3/uL (1.0-4.8) Monocytes # (Auto) 0.6 x10^3/uL (0.0-1.1) Eosinophils # (Auto) 0.0 x10^3/uL (0.0-0.7) Basophils # (Auto) 0.2 x10^3/uL (0.0-0.2) Segmented Neutrophils % 86 % (35-66) Band Neutrophils % 1 % (0-9) Lymphocytes % 11 % (24-48) Monocytes % 2 % (0-10) Platelet Estimate Adequate (ADEQUATE) Sodium Level 139 mmol/L (136-145) Potassium Level 4.0 mmol/L (3.5-5.1) Chloride Level 103 mmol/L (98-107) Carbon Dioxide Level 25 mmol/L (21-32) Anion Gap 11 (6-14) Blood Urea Nitrogen 7 mg/dL (7-20) Creatinine 1.0 mg/dL (0.6-1.0) Estimated GFR (Cockcroft-Gault) 78.8 BUN/Creatinine Ratio 7 (6-20) Glucose Level 123 mg/dL (70-99) Calcium Level 9.3 mg/dL (8.5-10.1) Magnesium Level 1.9 mg/dL (1.8-2.4) Total Bilirubin 0.5 mg/dL (0.2-1.0) Aspartate Amino Transf (AST/SGOT) 14 U/L (15-37) Alanine Aminotransferase (ALT/SGPT) 30 U/L (14-59) Alkaline Phosphatase 103 U/L (46-116) Total Protein 8.0 g/dL (6.4-8.2) Albumin 4.0 g/dL (3.4-5.0) Albumin/Globulin Ratio 1.0 (1.0-1.7) Lipase 78 U/L (73-393) Bedside Urine HCG, Qualitative Hcg negative (Negative) Lactic Acid Level 0.7 mmol/L (0.4-2.0) Laboratory Tests Test 02/24/20 20:30 02/24/20 21:11 02/24/20 21:17 02/25/20 01:15 Urine Collection Type Unknown Urine Color Yellow Urine Clarity Cloudy Urine pH 6.0 (<5.0-8.0) Urine Specific [place] 1.010 (1.000-1.030) Urine Protein Negative mg/dL (NEG-TRACE) Urine Glucose (UA) Negative mg/dL (NEG) Urine Ketones (Stick) Negative mg/dL (NEG) Urine Blood Negative (NEG) Urine Nitrite Negative (NEG) Urine Bilirubin Negative (NEG) Urine Urobilinogen Dipstick 1.0 mg/dL (0.2 mg/dL) Urine Leukocyte Esterase Moderate (NEG) Urine RBC 0 /HPF (0-2) Urine WBC 11-20 /HPF (0-4) Urine Squamous Epithelial Cells Mod /LPF Urine Bacteria Moderate /HPF (0-FEW) Urine Mucus Mod /LPF White Blood Count 19.0 x10^3/uL (4.0-11.0) Red Blood Count 4.26 x10^6/uL (3.50-5.40) Hemoglobin 12.9 g/dL (12.0-15.5) Hematocrit 37.2 % (36.0-47.0) Mean Corpuscular Volume 87 fL (79-100) Mean Corpuscular Hemoglobin 30 pg (25-35) Mean Corpuscular Hemoglobin Concent 35 g/dL (31-37) Red Cell Distribution Width 13.4 % (11.5-14.5) Platelet Count 250 x10^3/uL (140-400) Neutrophils (%) (Auto) 84 % (31-73) Lymphocytes (%) (Auto) 12 % (24-48) Monocytes (%) (Auto) 3 % (0-9) Eosinophils (%) (Auto) 0 % (0-3) Basophils (%) (Auto) 1 % (0-3) Neutrophils # (Auto) 15.9 x10^3/uL (1.8-7.7) Lymphocytes # (Auto) 2.3 x10^3/uL (1.0-4.8) Monocytes # (Auto) 0.6 x10^3/uL (0.0-1.1) Eosinophils # (Auto) 0.0 x10^3/uL (0.0-0.7) Basophils # (Auto) 0.2 x10^3/uL (0.0-0.2) Segmented Neutrophils % 86 % (35-66) Band Neutrophils % 1 % (0-9) Lymphocytes % 11 % (24-48) Monocytes % 2 % (0-10) Platelet Estimate Adequate (ADEQUATE) Sodium Level 139 mmol/L (136-145) Potassium Level 4.0 mmol/L (3.5-5.1) Chloride Level 103 mmol/L (98-107) Carbon Dioxide Level 25 mmol/L (21-32) Anion Gap 11 (6-14) Blood Urea Nitrogen 7 mg/dL (7-20) Creatinine 1.0 mg/dL (0.6-1.0) Estimated GFR (Cockcroft-Gault) 78.8 BUN/Creatinine Ratio 7 (6-20) Glucose Level 123 mg/dL (70-99) Calcium Level 9.3 mg/dL (8.5-10.1) Magnesium Level 1.9 mg/dL (1.8-2.4) Total Bilirubin 0.5 mg/dL (0.2-1.0) Aspartate Amino Transf (AST/SGOT) 14 U/L (15-37) Alanine Aminotransferase (ALT/SGPT) 30 U/L (14-59) Alkaline Phosphatase 103 U/L (46-116) Total Protein 8.0 g/dL (6.4-8.2) Albumin 4.0 g/dL (3.4-5.0) Albumin/Globulin Ratio 1.0 (1.0-1.7) Lipase 78 U/L (73-393) Bedside Urine HCG, Qualitative Hcg negative (Negative) Lactic Acid Level 0.7 mmol/L (0.4-2.0) Images: Images CT of the abdomen pelvis IMPRESSION: 1. Findings which may relate to enteritis and small bowel seen in the pelvis. May be infectious or inflammatory in etiology. 2. Normal appendix. Assessment/Plan Assessment/Plan Sepsis due to possible enterocolitis Acute abdominal pain concerning for exacerbation of endometriosis versus enterocolitis Constipation Leukocytosis due to above UTI Admit meant to medicine for further evaluation Pending gynecology evaluation Pending GI evaluation Pending ID evaluation Continue IV Zosyn Follow-up blood and urine cultures Lovenox for DVT prophylaxis Protonix GI prophylaxis Clear liquid diet Full code Discussed with RN and SW Disposition pending evaluation from specialist stated above Surrogate decision maker is the mother Justifications for Admission Abdominal Pain Indications Is patient in severe pain?: Yes Justification for admission: Patient has severe pain that requires (parenteral analgesic-please state analgesics and route) at least every 4 hours necessitating inpatient level of care. Is NPO status required?: Yes Justification for admission: Patient may require to be NPO for greater 24hours making it medically necessary to manage patient as inpatient. Other Justification ARIC HALL MD Feb 25, 2020 11:43
[2020-02-25] MEDS ORDERED: POTASSIUM CHLORIDE 10MEQ 100 ML IV SCH (11:45)
[2020-02-25] MEDS ORDERED: DEXTROSE 50% 25 GM / 50ML DISP.SYRIN. IV PRN (11:45)
[2020-02-25] MEDS ORDERED: POTASSIUM CHLORIDE 20 MEQ TABLET.ER. PO PRN (11:45)
[2020-02-25] MEDS ORDERED: DOCUSATE SODIUM 100 MG CAPSULE. PO PRN (11:45)
[2020-02-25] MEDS ORDERED: POTASSIUM CHLORIDE 10MEQ 100 ML IV PRN (11:45)
[2020-02-25] MEDS ORDERED: MAGNESIUM SULFATE 2GM 50 ML IV SCH (11:45)
[2020-02-25] MEDS ORDERED: ELECTROLYTE (NON-ICU) PROTOCOL MC PRN (11:45)
[2020-02-25] MEDS ORDERED: ONDANSETRON PF 4 MG/2 ML VIAL. IVP PRN (11:45)
[2020-02-25] MEDS: NICOTINE 7MG PATCH. TD PRN (12:26)
[2020-02-25] MEDS: IV NORMAL SALINE 1000ML BAG 1,000 ML IV SCH ×2 (12:27→21:31)
[2020-02-25] MEDS: PIPERACILLIN/TAZOBACTAM 3.375 GM in IV NORMAL SALINE 50ML 50 ML IV SCH ×2 (12:27→18:06)
[2020-02-25] MEDS ORDERED: NICOTINE POLACRILEX 2MG GUM PACKAGE of 12. BC PRN (12:30)
[2020-02-25] MEDS: ENOXAPARIN 40 MG/0.4 ML SYRINGE. SQ SCH (12:37)
[2020-02-25 15:05] VITALS: BP 117/75
--- NOTE | 2020-02-25 15:43 | PDOC2 ---
GI CONSULT Date of Service: DATE: 02/25/20 TIME: 15:26 HPI: HPI: 29 y/o female admitted through ER last night. Onset of RLQ pain (constant cramping) yesterday after waking up, got worse throughout the day. Radiates across lower abdomen and up to belly button. Worse after eating, worse when asked to raise/bend right leg. No similar pain in the past, no precipitating events. Associated w/ nausea, fever, and change in bowel habits. Usually stools twice daily but hasn't stooled at all in 2-3 days. Thinks passing less gas. Has regular diet ordered but just interested in drinking liquids for now. Noted w/ leukocytosis and possible UTI. On IV atbx. On CT: normal appendix and mildly dilated small bowel in pelvis. Also received Miralax x 1. Blood and urine cx pending. Followed by [facility] w/ ID consult pending. Denies reflux/heartburn, dysphagia, vomiting/hematemesis, diarrhea, hematochezia, melena, and weight loss. No previous EGD or colonoscopy. No GB, liver, pancreas, or PUD history. No NSAIDs. Works for the [employer]. Has a 12 y/o and a 5 y/o doing online learning during the pandemic. PMH: PMH: endometriosis, allergic rhinitis D&C, laparoscopy FH: Family History: No pertinent hx (denies GI cancers, IBD) Social History: Smoke: <1 pack per day ALCOHOL: occassional Drugs: None ROS: GEN: +fever HEENT: Denies blurred vision, sore throat CV: Denies chest pain RESP: Denies shortness of air, cough GI: Per HPI : Denies hematuria, dysuria ENDO: Denies weight changes NEURO: Denies confusion, dizziness MSK: Denies weakness, joint pain/swelling SKIN: Denies jaundice, pruritus Vitals: Vitals: Vital Signs Date Time Temp Pulse Resp B/P (MAP) Pulse Ox O2 Delivery O2 Flow Rate FiO2 02/25/20 11:05 98.9 99 19 123/77 (92) 100 Room Air 98.9 Labs: Labs: Laboratory Tests Test 02/24/20 20:30 02/24/20 21:11 02/24/20 21:17 02/25/20 01:15 Urine Collection Type Unknown Urine Color Yellow Urine Clarity Cloudy Urine pH 6.0 (<5.0-8.0) Urine Specific Martin 1.010 (1.000-1.030) Urine Protein Negative mg/dL (NEG-TRACE) Urine Glucose (UA) Negative mg/dL (NEG) Urine Ketones (Stick) Negative mg/dL (NEG) Urine Blood Negative (NEG) Urine Nitrite Negative (NEG) Urine Bilirubin Negative (NEG) Urine Urobilinogen Dipstick 1.0 mg/dL (0.2 mg/dL) Urine Leukocyte Esterase Moderate (NEG) Urine RBC 0 /HPF (0-2) Urine WBC 11-20 /HPF (0-4) Urine Squamous Epithelial Cells Mod /LPF Urine Bacteria Moderate /HPF (0-FEW) Urine Mucus Mod /LPF White Blood Count 19.0 x10^3/uL (4.0-11.0) Red Blood Count 4.26 x10^6/uL (3.50-5.40) Hemoglobin 12.9 g/dL (12.0-15.5) Hematocrit 37.2 % (36.0-47.0) Mean Corpuscular Volume 87 fL (79-100) Mean Corpuscular Hemoglobin 30 pg (25-35) Mean Corpuscular Hemoglobin Concent 35 g/dL (31-37) Red Cell Distribution Width 13.4 % (11.5-14.5) Platelet Count 250 x10^3/uL (140-400) Neutrophils (%) (Auto) 84 % (31-73) Lymphocytes (%) (Auto) 12 % (24-48) Monocytes (%) (Auto) 3 % (0-9) Eosinophils (%) (Auto) 0 % (0-3) Basophils (%) (Auto) 1 % (0-3) Neutrophils # (Auto) 15.9 x10^3/uL (1.8-7.7) Lymphocytes # (Auto) 2.3 x10^3/uL (1.0-4.8) Monocytes # (Auto) 0.6 x10^3/uL (0.0-1.1) Eosinophils # (Auto) 0.0 x10^3/uL (0.0-0.7) Basophils # (Auto) 0.2 x10^3/uL (0.0-0.2) Segmented Neutrophils % 86 % (35-66) Band Neutrophils % 1 % (0-9) Lymphocytes % 11 % (24-48) Monocytes % 2 % (0-10) Platelet Estimate Adequate (ADEQUATE) Sodium Level 139 mmol/L (136-145) Potassium Level 4.0 mmol/L (3.5-5.1) Chloride Level 103 mmol/L (98-107) Carbon Dioxide Level 25 mmol/L (21-32) Anion Gap 11 (6-14) Blood Urea Nitrogen 7 mg/dL (7-20) Creatinine 1.0 mg/dL (0.6-1.0) Estimated GFR (Cockcroft-Gault) 78.8 BUN/Creatinine Ratio 7 (6-20) Glucose Level 123 mg/dL (70-99) Calcium Level 9.3 mg/dL (8.5-10.1) Magnesium Level 1.9 mg/dL (1.8-2.4) Total Bilirubin 0.5 mg/dL (0.2-1.0) Aspartate Amino Transf (AST/SGOT) 14 U/L (15-37) Alanine Aminotransferase (ALT/SGPT) 30 U/L (14-59) Alkaline Phosphatase 103 U/L (46-116) Total Protein 8.0 g/dL (6.4-8.2) Albumin 4.0 g/dL (3.4-5.0) Albumin/Globulin Ratio 1.0 (1.0-1.7) Lipase 78 U/L (73-393) Bedside Urine HCG, Qualitative Hcg negative (Negative) Lactic Acid Level 0.7 mmol/L (0.4-2.0) Allergies: Coded Allergies: No Known Drug Allergies (Unverified , 10/23/13) Medications: Current Medications Medications (Trade) Dose Ordered Sig/Jese Route PRN Reason Start Time Stop Time Status Last Admin Dose Admin Fentanyl Citrate (Fentanyl 2ml Vial) 50 mcg 1X ONCE IV 02/24/20 21:30 02/24/20 21:31 DC 02/24/20 21:18 Sodium Chloride 1,000 ml @ 1,000 mls/hr 1X ONCE IV 02/24/20 21:30 02/24/20 22:29 DC 02/24/20 21:19 Ondansetron HCl (Zofran) 4 mg 1X ONCE IV 02/24/20 21:30 02/24/20 21:31 DC 02/24/20 21:18 Iohexol (Omnipaque 350 Mg/ml) 75 ml 1X ONCE IV 02/24/20 22:00 02/24/20 22:01 DC 02/24/20 21:41 Fentanyl Citrate (Fentanyl 2ml Vial) 50 mcg 1X ONCE IV 02/24/20 23:00 02/24/20 23:01 DC 02/24/20 22:34 Acetaminophen (Tylenol) 1,000 mg 1X ONCE PO 02/24/20 23:00 02/24/20 23:01 DC 02/24/20 22:34 Ceftriaxone Sodium (Rocephin) 1 gm 1X ONCE IVP 02/25/20 01:00 02/25/20 01:01 DC 02/25/20 01:21 Acetaminophen/ Hydrocodone Bitart (Lortab 10/325) 1 tab 1X ONCE PO 02/25/20 01:00 02/25/20 01:01 DC 02/25/20 01:01 Sodium Chloride 1,000 ml @ 2,000 mls/hr 1X ONCE IV 02/25/20 01:00 02/25/20 01:29 DC 02/25/20 01:00 Morphine Sulfate (Morphine Sulfate) 4 mg PRN Q2HR PRN IV SEVERE PAIN 7-10 02/25/20 00:45 02/26/20 00:44 02/25/20 08:17 Ketorolac Tromethamine (Toradol 15mg Vial) 15 mg 1X ONCE IVP 02/25/20 01:30 02/25/20 01:31 DC 02/25/20 01:21 Acetaminophen/ Hydrocodone Bitart (Lortab 10/325) 1 tab PRN Q6HRS PRN PO MODERATE TO SEVERE PAIN 02/25/20 10:00 02/25/20 10:03 Sennosides (Senna) 8.6 mg PRN BID PRN PO CONSTIPATION 02/25/20 10:00 02/25/20 11:37 DC 02/25/20 10:02 Piperacillin Sod/ Tazobactam Sod 3.375 gm/Sodium Chloride 50 ml @ 100 mls/hr Q6HRS IV 02/25/20 12:00 02/25/20 12:27 Sodium Chloride 1,000 ml @ 100 mls/hr Q10H IV 02/25/20 11:31 02/25/20 12:27 Nicotine (Nicoderm Cq 7mg) 1 patch PRN DAILY PRN TD SMOKING CESSATION 02/25/20 12:30 02/25/20 12:26 Imaging: Imaging: CT A/P FINDINGS: Heart size is normal. No pericardial effusion. Visualized lung bases are clear. No pleural effusion. Liver, spleen, pancreas, gallbladder and adrenals are unremarkable. No perinephric inflammation or hydronephrosis. No renal or ureteral calculi are identified. Bladder is decompressed not well evaluated. Uterus is not enlarged. No abnormal adnexal mass. Small bowel is mildly dilated in the pelvis, with mucosal hyperenhancement. Large and small bowel are unremarkable. Appendix is normal. No free abdominal air or fluid. No obstruction. Abdominal aorta has a normal course and caliber. Abdominal vasculature is patent. No enlarged abdominal lymph nodes are identified. Bowel aorta has a normal course and caliber. No enlarged intra-abdominal lymph nodes are identified. No suspicious osseous lesions or acute fractures. IMPRESSION: 1. Findings which may relate to enteritis and small bowel seen in the pelvis. May be infectious or inflammatory in etiology. 2. Normal appendix. Pelv US IMPRESSION: Normal sonographic appearance of the uterus and ovaries. Focus change in the ovaries, with dominant follicle on the left measuring 1.1 cm. PE: GEN: NAD - was asleep HEENT: Atraumatic, PERRL LUNGS: CTAB HEART: RRR ABD:quiet BS but present, worst discomfort in RLQ tracking across to LLQ and up to perumbilical area EXTREMITY: No edema SKIN: No rashes, no jaundice, +tattoos NEURO/PSYCH: A & O 3 A/P: A/P: RLQ/lower abdominal pain, nausea, change in bowel habits Fever, leukocytosis, ?UTI Abnormal CT - mildly dilated small bowel in pelvis (and noted normal appendix) CRC screen - average risk -- Supportive care from GI standpoint, await pending labs. Will review additional recs w/ Dr. Parsons. CLEMENT SHERWOOD Feb 25, 2020 15:43
[2020-02-25] MEDS ORDERED: METHYLNALTREXONE 12 MG/0.6 ML VIAL. SQ ONE (16:30)
[2020-02-25] MEDS: LUBIPROSTONE 24 MCG CAPSULE PO SCH (18:06)
[2020-02-25] MEDS: ACETAMINOPHEN 325 MG TABLET. PO PRN (19:04)
[2020-02-25 19:35] VITALS: BP 120/74
[2020-02-25] MEDS ORDERED: MAGNESIUM OXIDE 400 MG TABLET PO SCH (21:00)
[2020-02-25] MEDS: LACTOBACILLUS RHAMNOSUS GG 1 CAPSULE. PO SCH (21:00)
[2020-02-25 23:18] VITALS: BP 120/74
[2020-02-26] MEDS: PIPERACILLIN/TAZOBACTAM 3.375 GM in IV NORMAL SALINE 50ML 50 ML IV SCH ×4 (00:39→17:32)
[2020-02-26] MEDS: KETOROLAC 15 MG/ML VIAL. IVP PRN ×3 (01:33→21:03)
[2020-02-26] MEDS: POLYETHYLENE GLYCOL 3350 17 GM PACKET. PO PRN ×3 (01:39→16:12)
[2020-02-26] MEDS: HYDROcodone/APAP 10/325 1 TAB TABLET PO PRN ×3 (02:48→17:38)
[2020-02-26 03:47] VITALS: BP 125/78
[2020-02-26 04:56] LABS: BASO # 0.1 x10^3/uL (0.0-0.2); BASO % 1 % (0-3); EOS % 0 % (0-3); HEMATOCRIT 30.3 % (36.0-47.0); HEMOGLOBIN 10.1 g/dL (12.0-15.5); LYMPH # 1.9 x10^3/uL (1.0-4.8); LYMPH % 15 % (24-48); MEAN CORPUSCULAR HEMOGLOBIN 30 pg (25-35); MEAN CORPUSCULAR HGB CONC 33 g/dL (31-37); MEAN CORPUSCULAR VOLUME 89 fL (79-100); MONO # 0.5 x10^3/uL (0.0-1.1); MONO % 4 % (0-9); NEUT % 80 % (31-73); PLATELET COUNT 177 x10^3/uL (140-400); RED CELL DISTRIBUTION WIDTH 13.3 % (11.5-14.5); WHITE BLOOD COUNT 12.6 x10^3/uL (4.0-11.0)
[2020-02-26 05:13] LABS: CALCIUM 8.2 mg/dL (8.5-10.1); CREATININE 0.8 mg/dL (0.6-1.0); GFR 101.9; MAGNESIUM 2.1 mg/dL (1.8-2.4); PHOSPHORUS 3.1 mg/dL (2.6-4.7); POTASSIUM 3.7 mmol/L (3.5-5.1)
[2020-02-26 07:00] VITALS: BP 108/69
[2020-02-26] MEDS: IV NORMAL SALINE 1000ML BAG 1,000 ML IV SCH ×2 (07:31→17:31)
[2020-02-26] MEDS: LACTOBACILLUS RHAMNOSUS GG 1 CAPSULE. PO SCH ×2 (08:21→21:00)
[2020-02-26] MEDS: NICOTINE 7MG PATCH. TD PRN (08:21)
[2020-02-26] MEDS: LUBIPROSTONE 24 MCG CAPSULE PO SCH ×2 (08:23→17:32)
--- NOTE | 2020-02-26 08:35 | PDOC ---
Infectious Disease Note Vital Sign Vital Signs Vital Signs Date Time Temp Pulse Resp B/P (MAP) Pulse Ox O2 Delivery O2 Flow Rate FiO2 02/26/20 07:00 98.5 99 18 108/69 (82) 97 Room Air 98.5 Labs Lab Laboratory Tests Test 02/26/20 04:45 White Blood Count 12.6 x10^3/uL (4.0-11.0) Red Blood Count 3.40 x10^6/uL (3.50-5.40) Hemoglobin 10.1 g/dL (12.0-15.5) Hematocrit 30.3 % (36.0-47.0) Mean Corpuscular Volume 89 fL (79-100) Mean Corpuscular Hemoglobin 30 pg (25-35) Mean Corpuscular Hemoglobin Concent 33 g/dL (31-37) Red Cell Distribution Width 13.3 % (11.5-14.5) Platelet Count 177 x10^3/uL (140-400) Neutrophils (%) (Auto) 80 % (31-73) Lymphocytes (%) (Auto) 15 % (24-48) Monocytes (%) (Auto) 4 % (0-9) Eosinophils (%) (Auto) 0 % (0-3) Basophils (%) (Auto) 1 % (0-3) Neutrophils # (Auto) 10.0 x10^3/uL (1.8-7.7) Lymphocytes # (Auto) 1.9 x10^3/uL (1.0-4.8) Monocytes # (Auto) 0.5 x10^3/uL (0.0-1.1) Eosinophils # (Auto) 0.0 x10^3/uL (0.0-0.7) Basophils # (Auto) 0.1 x10^3/uL (0.0-0.2) Sodium Level 142 mmol/L (136-145) Potassium Level 3.7 mmol/L (3.5-5.1) Chloride Level 107 mmol/L (98-107) Carbon Dioxide Level 27 mmol/L (21-32) Anion Gap 8 (6-14) Blood Urea Nitrogen 5 mg/dL (7-20) Creatinine 0.8 mg/dL (0.6-1.0) Estimated GFR (Cockcroft-Gault) 101.9 Glucose Level 95 mg/dL (70-99) Calcium Level 8.2 mg/dL (8.5-10.1) Phosphorus Level 3.1 mg/dL (2.6-4.7) Magnesium Level 2.1 mg/dL (1.8-2.4) Micro Microbiology 02/25/20 Blood Culture - Preliminary, Resulted NO GROWTH AFTER 1 DAY Objective Assessment Fever Leukocytosis Constipation ? enteritis Plan Plan of Care Cont zosyn F/u labs and cults D/w nursing Thank you # [id number] ISAAC ROTHMAN MD Feb 26, 2020 08:35
--- NOTE | 2020-02-26 10:11 | CONS ---
DATE OF CONSULTATION: 02/26/2020 LOCATION: The patient is in room #444. REQUESTING PHYSICIAN: Shaheen Lopez MD REASON FOR CONSULTATION: Antibiotic management. HISTORY OF PRESENT ILLNESS: The patient is a 29-year-old female with history of endometriosis and history of dilatation and curettage, who states on Friday, she has some food, was doing okay, ate some leftovers on Friday, but then after that began to have episode of diarrhea and then her abdomen began to feel worse. Yesterday morning, she had acute onset of worsening abdominal pain accompanied with some nausea and fever and she presented to [facility]. White count was 19,000 with 1% bands. Urinalysis had moderate bacteria, but also moderate squamous cells. Nitrite and leukocyte esterase were negative. She underwent a pelvic ultrasound, had normal sonographic appearance of the uterus and ovaries. A CT scan of the abdomen and pelvis performed with contrast, which showed some findings which may relate to enteritis and small bowel. She was placed on Zosyn. Currently, she is lying in bed. She feels very constipated. Also, has mild headache. Denies any sore throat, cough or chest pain. No dysuria, frequency or urgency. Denies any rashes. PAST MEDICAL HISTORY: Positive for endometriosis, history of Trichomonas, history of D and C, and diagnostic laparoscopy. REVIEW OF SYSTEMS: Otherwise negative. ALLERGIES: No known drug allergies. SOCIAL HISTORY: She is a smoker. She works at the [employer]. She has 2 children, ages 12 and 5 at home. They are healthy. She also has a rabbit at home that she has had for 2-3 years that has been healthy. Denies any recent sexually transmitted diseases. Does use occasional alcohol. FAMILY HISTORY: Negative for any GI issues. CURRENT MEDICATIONS: Include Zosyn, lactobacillus, Amitiza, Relistor ____, nicotine patch, MiraLax. PHYSICAL EXAMINATION: VITAL SIGNS: T-max was 101.8, currently is 98.5, pulse 99, respirations 18, blood pressure 108/69, satting 97% on room air. CONSTITUTIONAL: She is sitting upright in bed. She is cooperative. She is in no acute distress. Does look a bit tired. HEENT: Pupils equal and reactive. She has normal conjunctivae. Oral cavity, oropharynx was clear. NECK: Supple with good range of motion. LUNGS: Clear to auscultation bilaterally. HEART: S1, S2. ABDOMEN: Soft, mild tenderness, no guarding. EXTREMITIES: Without clubbing, cyanosis or gross edema. SKIN: Warm to touch without generalized rash. She does have tattoos. NEUROLOGIC: She is nonfocal, moves all extremities. PSYCHIATRIC: Affect was appropriate. LABORATORY DATA: White count today 12.6, down from 19, hemoglobin 10.1, platelets of 177, neutrophils of 80. Creatinine of 0.8. Normal liver function study tests. Glucose was 95. Urine reviewed in the history of present illness as well as Radiology. IMPRESSION: 1. Fever. 2. Leukocytosis. 3. Constipation. 4. Enteritis. RECOMMENDATIONS: For now, continue Zosyn. Follow up labs and cultures. This was discussed with nursing. Thank you for allowing me to participate in the patient's care. If you have any questions, please do not hesitate to contact me. ISAAC ROTHMAN MD DR: LISA/jeet JOB#: [id number] / [id number] KELSY
[2020-02-26 11:00] VITALS: BP 130/85
--- NOTE | 2020-02-26 12:01 | PDOC ---
[facility] PROGRESS NOTE Date of Service DOS: DATE: 02/26/20 TIME: 11:59 Chief Complaint Chief Complaint Sepsis due to possible enterocolitis Acute abdominal pain concerning for exacerbation of endometriosis versus enterocolitis Constipation Leukocytosis due to above UTI Admit meant to medicine for further evaluation Gynecology services signed off Appreciate GI recommendationscontinue current bowel regimen and lubiprostone Appreciate ID evaluation Continue IV Zosyn Follow-up blood and urine cultures Lovenox for DVT prophylaxis Protonix GI prophylaxis Clear liquid diet Full code Discussed with RN and SW Disposition pending evaluation from specialist stated above Surrogate decision maker is the mother History of Present Illness History of Present Illness 29-year-old -Congolese female with past medical history of endometriosis who presents with right lower quadrant abdominal pain that began yesterday morning. She does endorse some nausea and fever. She denies any hematemesis or diarrhea or shortness of breath or fevers. Right lower quadrant pain is sharp and 10 out of 10 and associated with some anorexia. There is no radiation. She denies any exacerbating or alleviating factors. Patient states that she also has not had a bowel movement in the past 3 days. Of note, she states that she has had a DNC and a laparoscopic procedure done for her endometriosis however she is unable to elaborate on these procedures. 02/26/2020 No acute events overnight. Patient has not endorsed any bowel movements. Patient has not passed flatus. Patient continues to be uncomfortable and just has abdominal discomfort. Patient has not ambulated thoroughly and only has ambulated to the bathroom. Patient's chart, labs, images were reviewed and discussed with RN Vitals/I&O Vitals/I&O: Vital Signs Date Time Temp Pulse Resp B/P (MAP) Pulse Ox O2 Delivery O2 Flow Rate FiO2 02/26/20 11:00 99.1 109 18 130/85 (100) 96 Room Air 99.1 I & O 02/25/20 02/25/20 02/26/20 15:00 23:00 07:00 Intake Total 720 ml Balance 720 ml Physical Exam Physical Exam: GEN: No apparent distress. Alert and oriented HEENT: Normal cephalic, atraumatic, external auditory canals are patent NECK: Supple, no JVD, no thyromegaly was noted LUNGS: Bilateral crackles HEART: RRR, S1, S2 present. Peripheral pulses intact, no obvious murmurs noted ABDOMEN: Soft, lower quadrant tenderness. Positive bowel sounds, no organomegaly, normal bowel sounds EXTREMITIES: Without clubbing, cyanosis, or edema. Pedal pulses intact. Negative Homans sign Labs Labs: Laboratory Tests Test 02/26/20 04:45 White Blood Count 12.6 x10^3/uL (4.0-11.0) Red Blood Count 3.40 x10^6/uL (3.50-5.40) Hemoglobin 10.1 g/dL (12.0-15.5) Hematocrit 30.3 % (36.0-47.0) Mean Corpuscular Volume 89 fL (79-100) Mean Corpuscular Hemoglobin 30 pg (25-35) Mean Corpuscular Hemoglobin Concent 33 g/dL (31-37) Red Cell Distribution Width 13.3 % (11.5-14.5) Platelet Count 177 x10^3/uL (140-400) Neutrophils (%) (Auto) 80 % (31-73) Lymphocytes (%) (Auto) 15 % (24-48) Monocytes (%) (Auto) 4 % (0-9) Eosinophils (%) (Auto) 0 % (0-3) Basophils (%) (Auto) 1 % (0-3) Neutrophils # (Auto) 10.0 x10^3/uL (1.8-7.7) Lymphocytes # (Auto) 1.9 x10^3/uL (1.0-4.8) Monocytes # (Auto) 0.5 x10^3/uL (0.0-1.1) Eosinophils # (Auto) 0.0 x10^3/uL (0.0-0.7) Basophils # (Auto) 0.1 x10^3/uL (0.0-0.2) Sodium Level 142 mmol/L (136-145) Potassium Level 3.7 mmol/L (3.5-5.1) Chloride Level 107 mmol/L (98-107) Carbon Dioxide Level 27 mmol/L (21-32) Anion Gap 8 (6-14) Blood Urea Nitrogen 5 mg/dL (7-20) Creatinine 0.8 mg/dL (0.6-1.0) Estimated GFR (Cockcroft-Gault) 101.9 Glucose Level 95 mg/dL (70-99) Calcium Level 8.2 mg/dL (8.5-10.1) Phosphorus Level 3.1 mg/dL (2.6-4.7) Magnesium Level 2.1 mg/dL (1.8-2.4) Assessment and Plan Assessmemt and Plan Problems Medical Problems: (1) Pyelonephritis Status: Acute (2) Sepsis Status: Acute Comment Review of Relevant I have reviewed the following items hawa (where applicable) has been applied. Medications: Current Medications Medications (Trade) Dose Ordered Sig/Jese Route PRN Reason Start Time Stop Time Status Last Admin Dose Admin Piperacillin Sod/ Tazobactam Sod 3.375 gm/Sodium Chloride 50 ml @ 100 mls/hr Q6HRS IV 02/25/20 12:00 02/26/20 06:00 Nicotine Polacrilex (Nicorette Gum) 1 each PRN Q2HR PRN BC SMOKING CESSATION 02/25/20 12:30 02/25/20 16:17 Nicotine (Nicoderm Cq 7mg) 1 patch PRN DAILY PRN TD SMOKING CESSATION 02/25/20 12:30 02/26/20 08:21 Lactobacillus Rhamnosus (Culturelle) 1 cap BID PO 02/25/20 21:00 02/26/20 08:21 Lubiprostone (Amitiza) 24 mcg BIDWMEALS PO 02/25/20 17:00 02/26/20 08:23 Ketorolac Tromethamine (Toradol 15mg Vial) 15 mg PRN Q8HRS PRN IVP MODERATE PAIN 4-6 02/26/20 01:30 03/02/20 01:29 02/26/20 01:33 Justifications for Admission Abdominal Pain Indications Is patient in severe pain?: Yes Justification for admission: Patient has severe pain that requires (parenteral analgesic-please state analgesics and route) at least every 4 hours necessitating inpatient level of care. Is NPO status required?: Yes Justification for admission: Patient may require to be NPO for greater 24hours making it medically necessary to manage patient as inpatient. Other Justification ARIC HALL MD Feb 26, 2020 12:01
[2020-02-26] MEDS: ENOXAPARIN 40 MG/0.4 ML SYRINGE. SQ SCH (13:00)
[2020-02-26 15:00] VITALS: BP 119/70
[2020-02-26] MEDS: ACETAMINOPHEN 325 MG TABLET. PO PRN (17:32)
[2020-02-26 19:00] VITALS: BP 129/75
[2020-02-26 23:00] VITALS: BP 122/65
[2020-02-27] MEDS: PIPERACILLIN/TAZOBACTAM 3.375 GM in IV NORMAL SALINE 50ML 50 ML IV SCH ×2 (01:10→05:46)
[2020-02-27] MEDS: HYDROcodone/APAP 10/325 1 TAB TABLET PO PRN ×2 (01:26→14:26)
[2020-02-27 03:00] VITALS: BP 121/77
[2020-02-27] MEDS: IV NORMAL SALINE 1000ML BAG 1,000 ML IV SCH ×2 (03:31→13:31)
[2020-02-27 07:25] VITALS: BP 123/72
[2020-02-27] MEDS: LUBIPROSTONE 24 MCG CAPSULE PO SCH (08:00)
[2020-02-27] MEDS: LACTOBACILLUS RHAMNOSUS GG 1 CAPSULE. PO SCH (08:02)
[2020-02-27] MEDS: NICOTINE 7MG PATCH. TD PRN (08:02)
--- NOTE | 2020-02-27 08:16 | PDOC ---
"Infectious Disease Note Subjective Subjective Better but a little tired with multiple BMs over night No F|/C/S/N/V/SOA/rash Still some mild abd discomfort ROS ROS o/w neg Vital Sign Vital Signs Vital Signs Date Time Temp Pulse Resp B/P (MAP) Pulse Ox O2 Delivery O2 Flow Rate FiO2 02/27/20 07:25 99.1 85 20 123/72 (89) 95 Room Air 99.1 Physical Exam PHYSICAL EXAM CONSTITUTIONAL: She is sitting upright in bed. She is cooperative. She is in no acute distress. Does look a bit tired. HEENT: Pupils equal and reactive. She has normal conjunctivae. Oral cavity, oropharynx was clear. NECK: Supple with good range of motion. LUNGS: Clear to auscultation bilaterally. HEART: S1, S2. ABDOMEN: Soft, mild tenderness, no guarding. EXTREMITIES: Without clubbing, cyanosis or gross edema. SKIN: Warm to touch without generalized rash. She does have tattoos. NEUROLOGIC: She is nonfocal, moves all extremities. PSYCHIATRIC: Affect was appropriate. Labs Micro Microbiology 02/25/20 Blood Culture - Preliminary, Resulted NO GROWTH AFTER 1 DAY Objective Assessment Fever- better Leukocytosis Constipation - better ? enteritis Plan Plan of Care Discont zosyn and dose Augmentin for 5 days Await GI F/u D/w nursing ISAAC ROTHMAN MD Feb 27, 2020 08:16"
[2020-02-27] MEDS ORDERED: AMOXICILLIN/K CLAV 875/125MG TABLET. PO SCH (09:00)
[2020-02-27] MEDS: KETOROLAC 15 MG/ML VIAL. IVP PRN (10:22)
[2020-02-27 10:29] VITALS: BP 127/76
[2020-02-27] MEDS ORDERED: AMOX1TAB11 PO (11:33)
--- NOTE | 2020-02-27 11:34 | DISCH ---
DISCHARGE INSTRUCTIONS Condition on Discharge Condition on Discharge: Stable Activity After Discharge Activity Instructions for Disc: Activity as tolerated Lifting Instructions after Dis: No heavy lifting, No pulling or pushing, Do not lift >10 pounds Driving Instructions after Dis: Do not drive today Weight Bearing Status after Di: As tolerated Diet after Discharge Diet after Discharge: Regular Diet Texture: No Mixed Consistencies Checks after Discharge DC Comment: Finish course of Augmentin for 5 days Follow-Up Follow up with: gastroenterology as needed Follow Up With: PCP within 1 week of discharge ARIC HALL MD Feb 27, 2020 11:34
[2020-02-27] MEDS: ENOXAPARIN 40 MG/0.4 ML SYRINGE. SQ SCH (13:00)
[2020-02-27 14:26] VITALS: BP 132/90
--- NOTE | 2020-03-01 08:32 | PDOC3 ---
[facility]-Discharge Summary Date of Admission: Date of Admission: Feb 25, 2020 Date of Discharge: Date of Discharge: Feb 26, 2020 Admission Diagnosis: Admitting Diagnosis: Sepsis due to possible enterocolitis Acute abdominal pain concerning for exacerbation of endometriosis versus enterocolitis Constipation Leukocytosis due to above UTI Discharge Diagnosis: Discharge Diagnosis: Sepsis due to possible enterocolitis Acute abdominal pain concerning for exacerbation of endometriosis versus en terocolitis Constipation Leukocytosis due to above Consults: Consults: GI ID Hospital Course: Hospital Course: 29-year-old -Kitt[place] female with past medical history of endometriosis who presents with right lower quadrant abdominal pain that began yesterday morning. She does endorse some nausea and fever. She denies any hematemesis or diarrhea or shortness of breath or fevers. Right lower quadrant pain is sharp and 10 out of 10 and associated with some anorexia. There is no radiation. She denies any exacerbating or alleviating factors. Patient states that she also has not had a bowel movement in the past 3 days. Of note, she states that she has had a DNC and a laparoscopic procedure done for her endometriosis however she is unable to elaborate on these procedures Patient admitted for further care and IV Abx. Patient was able to tolerate diet and eventually had a adequate BM on night before discharge. She will continue with 5 days of augmentin. Patient was passing flatus and tolerating diet by time of discharge. The rest of the hospital course was uneventful. Patient seen and examined on day of discharge. Disposition: Disposition/Orders: D/C to Home Activity: Activity: Resume previous activity Diet: Diet: Regular Medications: Home Meds Active Scripts Amoxicillin/Potassium Clav (AMOX TR-K CLV 875-125 MG TAB) 1 Each Tablet, 1 TAB PO BID for enterocolitis for 5 Days, #10 TAB Prov:ARIC HALL MD 02/27/20 Discontinued Reported Medications Cetirizine Hcl (ZYRTEC) 10 Mg Tablet, 1 TAB PO DAILY for allergies, #30 TAB 2 Refills 02/25/20 Scheduled Amoxicillin/Potassium Clav (Amox Tr-K Clv 875-125 Mg Tab), 1 TAB PO BID Discontinued Medications Cetirizine Hcl (Zyrtec), 1 TAB PO DAILY, (Reported) Total Time: Total Time: Total time spent was 25 minutes in preparing scripts, discharge planning with SW and RN, and preparing this discharge summary. Justicifation of Admission Dx: Justifications for Admission: Justification of Admission Dx: Yes ARIC HALL MD Mar 01, 2020 08:32
== END 2020-02-27 16:10 | disposition home or self-care (01) | DRG 872 ==
LOC: ER 20:29 → 4 NORTH 02-25 00:30
PROVIDERS: ADMIT Internal Medicine; ATTEND Internal Medicine
DX: A41.9 Sepsis, unspecified organism (principal); N12 Tubulo-interstitial nephritis, not specified as acute or chronic; F17.210 Nicotine dependence, cigarettes, uncomplicated; K52.9 Noninfective gastroenteritis and colitis, unspecified; K59.00 Constipation, unspecified; Z79.899 Other long term (current) drug therapy
CPT/HCPCS: 36415; 74177; 76830; 76856; 80048; 80053; 81001; 81025; 83605; 83690; 83735; 84100; 85007; 85025; 87040; 87086; 93005; 96361; 96374; 96375; 96376; 99406; J0696; J1885; J2270; J2405; J2543; J3010; J7030; Q9967; 99285-25; G0378